=== PATIENT | male | born 2000 | race Caucasian/White ===

== ENCOUNTER 2019-01-30 14:57 | Emergency (ER) | payer SELFPAY ==
[~2019-01-30] VITALS: Ht 182.9 cm; Wt 59.0 kg
--- NOTE | 2019-01-30 15:55 | RAD ---
Three-view right hand study Clinical indications: Thumb swelling and redness. No known injury. FINDINGS: Diffuse soft tissue swelling is evident. No acute fracture or dislocation or lytic process evident. No soft tissue air or radiopaque foreign body is evident. IMPRESSION: No acute osseous abnormality. Electronically signed by: Johs Olivares MD (01/30/2019 3:52 PM) [facility]
--- NOTE | 2019-01-30 16:05 | PHYS DOC ---
Past Medical History Past Medical History: No Pertinent History Past Surgical History: Tonsillectomy Alcohol Use: Occasionally Drug Use: Marijuana Adult General Chief Complaint Chief Complaint: THUMB HPI HPI Patient is a 19 year old , accompanied by his mother, who presents to the emergency department with complaints of redness, swelling, and pain to his right thumb that has gradually gotten worse over the last 2 weeks. Patient denies any known specific injury. He states that he hit his right hand while at work a few weeks ago maybe that when symptoms started but other than that there has been no injury. Patient denies any fever, wound, or drainage from the site. He currently rates the pain a 2-3/10 but sates that the pain increases to a 10 out of 10 on the pain scale with palpation. PT reports limited ROM of his thumb proximal to the DIP. All other ROS is neg unless otherwise noted in HPI. Review of Systems Review of Systems See Above Physical Exam Physical Exam See Above Constitutional: Well developed, well nourished, no acute distress, non-toxic appearance. [] HENT: Normocephalic, atraumatic, bilateral external ears normal, oropharynx moist, no oral exudates, nose normal. [] Eyes: PERRLA, EOMI, conjunctiva normal, no discharge. [] Neck: Normal range of motion, no stridor. [] Cardiovascular:Heart rate regular rhythm, Lungs & Thorax: Bilateral breath sounds clear to auscultation [] Skin: Warm, dry; R thumb erythema, warmth, and tenderness proximal to the DIP on the palmar aspect without any fluctuant area or pustule present, cap refill distal to the DIP is < 2 seconds Back: No tenderness, no CVA tenderness. [] Extremities: R thumb TTP from the DIP to the palm with limited ROM due to pain, no cyanosis, no clubbing, 2+ edema to the R thumb, no obvious deformity. Neurologic: Alert and oriented X 3, normal motor function, normal sensory function, no focal deficits noted. [] Psychologic: Affect normal, judgement normal, mood normal. [] Current Patient Data Vital Signs Vital Signs Date Time Temp Pulse Resp B/P (MAP) Pulse Ox O2 Delivery O2 Flow Rate FiO2 01/30/19 15:10 98.5 109 12 157/81 (106) 98 Room Air 98.5 Lab Values Laboratory Tests Test 01/30/19 16:06 White Blood Count 14.7 x10^3/uL (4.0-11.0) H Red Blood Count 5.32 x10^6/uL (4.30-5.70) Hemoglobin 17.3 g/dL (13.0-17.5) Hematocrit 50.2 % (39.0-53.0) Mean Corpuscular Volume 94 fL (79-100) Mean Corpuscular Hemoglobin 32 pg (25-35) Mean Corpuscular Hemoglobin Concent 34 g/dL (31-37) Red Cell Distribution Width 13.9 % (11.5-14.5) Platelet Count 272 x10^3/uL (140-400) Neutrophils (%) (Auto) 81 % (31-73) H Lymphocytes (%) (Auto) 10 % (24-48) L Monocytes (%) (Auto) 8 % (0-9) Eosinophils (%) (Auto) 1 % (0-3) Basophils (%) (Auto) 0 % (0-3) Neutrophils # (Auto) 11.9 x10^3/uL (1.8-7.7) H Lymphocytes # (Auto) 1.4 x10^3/uL (1.0-4.8) Monocytes # (Auto) 1.2 x10^3/uL (0.0-1.1) H Eosinophils # (Auto) 0.2 x10^3/uL (0.0-0.7) Basophils # (Auto) 0.0 x10^3/uL (0.0-0.2) Erythrocyte Sedimentation Rate 3 (0-15) Sodium Level 143 mmol/L (136-145) Potassium Level 3.8 mmol/L (3.5-5.1) Chloride Level 102 mmol/L (98-107) Carbon Dioxide Level 31 mmol/L (21-32) Anion Gap 10 (6-14) Blood Urea Nitrogen 9 mg/dL (8-26) Creatinine 1.0 mg/dL (0.7-1.3) Estimated GFR (Cockcroft-Gault) 95.3 BUN/Creatinine Ratio 9 (6-20) Glucose Level 109 mg/dL (70-99) H Lactic Acid Level 1.2 mmol/L (0.4-2.0) Uric Acid 5.2 mg/dL (3.5-7.2) Calcium Level 9.9 mg/dL (8.5-10.1) Total Bilirubin 0.8 mg/dL (0.2-1.0) Aspartate Amino Transferase (AST) 13 U/L (15-37) L Alanine Aminotransferase (ALT) 10 U/L (16-63) L Alkaline Phosphatase 139 U/L (46-116) H C-Reactive Protein, Quantitative 15.5 mg/L (0-3.3) H Total Protein 8.7 g/dL (6.4-8.2) H Albumin 4.7 g/dL (3.4-5.0) Albumin/Globulin Ratio 1.2 (1.0-1.7) Laboratory Tests 01/30/19 16:06 Laboratory Tests 01/30/19 16:06 EKG EKG [] Radiology/Procedures Radiology/Procedures PROCEDURE: HAND RIGHT 3V Three-view right hand study Clinical indications: Thumb swelling and redness. No known injury. FINDINGS: Diffuse soft tissue swelling is evident. No acute fracture or dislocation or lytic process evident. No soft tissue air or radiopaque foreign body is evident. IMPRESSION: No acute osseous abnormality.[] PROCEDURE: EXT NON VASC RIGHT Examination: Ultrasound right thumb HISTORY: History of thumb swelling COMPARISON: None available Findings/ impression: Ultrasound of the right thumb demonstrates complex appearing heterogeneous echogenicity in the soft tissue with increased vascular flow identified measuring 5.2 x 3.6 x 1.7 cm could be soft tissue infection/edema or phlegmonous change. Course & Med Decision Making Course & Med Decision Making Pertinent Labs and Imaging studies reviewed. (See chart for details) dx: R thumb infection and pain 1755- Dr. Huertas recommends that this patient is evaluated by a hand surgeon. Will contact [facility]. 1805- SPoke with Debora film composer at [facility], advised of need for hand surgeon to evaluate patient. Pt is to go to the admissions office located at the main entrance. 1857- Per Debora film composer at [facility]. Dr. Persaud is accepting physician for this patient. Will transfer via POV to [facility]. [] Dragon Disclaimer Dragon Disclaimer This electronic medical record was generated, in whole or in part, using a voice recognition dictation system. Departure Departure Impression: Primary Impression: Pain of right thumb Additional Impression: Cellulitis of right thumb Disposition: 02 TRANSFER [facility] ([facility]) Condition: STABLE Referrals: NO PCP (PCP) Patient Instructions: Cellulitis, [id number] Additional Instructions: Go directly to admissions office, located at the main entrance of [facility]. You are being admitted to the hospital by Dr. Persaud. Problem Qualifiers PATRICE MCCALLUM APRN Jan 30, 2019 16:05
[2019-01-30 16:34] LABS: BASO % 0 % (0-3); EOS # 0.2 x10^3/uL (0.0-0.7); EOS % 1 % (0-3); HEMATOCRIT 50.2 % (39.0-53.0); HEMOGLOBIN 17.3 g/dL (13.0-17.5); LYMPH # 1.4 x10^3/uL (1.0-4.8); LYMPH % 10 % (24-48); MEAN CORPUSCULAR HEMOGLOBIN 32 pg (25-35); MEAN CORPUSCULAR HGB CONC 34 g/dL (31-37); MEAN CORPUSCULAR VOLUME 94 fL (79-100); MONO # 1.2 x10^3/uL (0.0-1.1); MONO % 8 % (0-9); NEUT # 11.9 x10^3/uL (1.8-7.7); NEUT % 81 % (31-73); PLATELET COUNT 272 x10^3/uL (140-400); RED BLOOD COUNT 5.32 x10^6/uL (4.30-5.70); RED CELL DISTRIBUTION WIDTH 13.9 % (11.5-14.5); WHITE BLOOD COUNT 14.7 x10^3/uL (4.0-11.0)
[2019-01-30 16:46] LABS: CALCIUM 9.9 mg/dL (8.5-10.1); GFR 95.3; POTASSIUM 3.8 mmol/L (3.5-5.1)
[2019-01-30 16:51] LABS: ALBUMIN 4.7 g/dL (3.4-5.0); ALBUMIN/GLOBULIN RATIO 1.2 (1.0-1.7); C-REACTIVE PROTEIN 15.5 mg/L (0-3.3); TOTAL BILIRUBIN 0.8 mg/dL (0.2-1.0); TOTAL PROTEIN 8.7 g/dL (6.4-8.2)
--- NOTE | 2019-01-30 17:44 | RAD ---
Examination: Ultrasound right thumb HISTORY: History of thumb swelling COMPARISON: None available Findings/ impression: Ultrasound of the right thumb demonstrates complex appearing heterogeneous echogenicity in the soft tissue with increased vascular flow identified measuring 5.2 x 3.6 x 1.7 cm could be soft tissue infection/edema or phlegmonous change. Electronically signed by: Wong Wang MD (01/30/2019 5:41 PM) [facility]
[2019-01-30 19:25] VITALS: BP 128/75
== END 2019-01-30 19:45 | disposition home or self-care (01) ==
LOC: ER 14:57
DX: L03.011 Cellulitis of right finger (principal)
CPT/HCPCS: 36415; 73130; 76881; 80053; 83605; 84550; 85025; 85651; 86140; 87040; 99285-25